=== PATIENT | male | born 1955 | race Caucasian/White ===

== ENCOUNTER 2016-04-25 12:39 | Emergency (ER) | payer MEDICARE ==
[~2016-04-25] VITALS: Ht 175.3 cm; Wt 84.0 kg
[~2016-04-25 12:39] MED LIST: EPIPEN0.3 MG IM; FLOVENT HFA110 MCG IN; TAM75CAP PO; VENTOLIN HFA IN
[2016-04-25] MEDS ORDERED: ULTRAM50 M1 PO (14:14)
[2016-04-25 14:18] VITALS: BP 152/83
== END 2016-04-25 14:28 | disposition home or self-care (01) ==
LOC: ED 12:39
DX: S80.212A Abrasion, left knee, initial encounter (principal); S80.211A Abrasion, right knee, initial encounter; S83.92XA Sprain of unspecified site of left knee, initial encounter; S93.601A Unspecified sprain of right foot, initial encounter; S90.31XA Contusion of right foot, initial encounter; W01.0XXA Fall on same level from slipping, tripping and stumbling without subsequent striking against object, initial encounter; Y92.89 Other specified places as the place of occurrence of the external cause